=== PATIENT | male | born 2000 | race Two or more races ===

== ENCOUNTER 2025-03-20 11:45 | Emergency (ER) | payer OTHER ==
[~2025-03-20] VITALS: Ht 182.9 cm; Wt 100.2 kg
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
--- NOTE | 2025-03-20 13:00 | DVH ---
EXAM: XY R FEMUR XRAY HISTORY: trauma COMPARISON: None TECHNIQUE: AP and lateral views of the right femur were performed. FINDINGS/IMPRESSION: No acute fracture of the right femur. No significant degenerative changes of the right hip or knee.
--- NOTE | 2025-03-20 13:01 | DVH ---
CLINICAL INDICATION: trauma TECHNIQUE: 3 radiographic views of the right wrist were obtained. Comparison: None FINDINGS/IMPRESSION: There is no evidence of acute fracture or dislocation. The visualized joint space is well maintained. The alignment is anatomical. There is no radiopaque foreign body.
--- NOTE | 2025-03-20 13:02 | DVH ---
CLINICAL INDICATION: trauma TECHNIQUE: 3 radiographic views of the right hip were obtained. Comparison: None FINDINGS/IMPRESSION: There is no evidence of acute fracture or dislocation. The visualized joint space is well maintained. The alignment is anatomical. There is no radiopaque foreign body.
[2025-03-20] MEDS: HYDROcodone-ACET 5/325MG TAB PO ONE (13:58)
[2025-03-20] MEDS: KETOROLAC TROMETH 60MG/2ML VIAL IM ONE (13:59)
[2025-03-20] MEDS: TETANUS-DIPTH-ACEL PERTUSSIS 0.5ML SYR Tdap IM ONE (14:02)
[2025-03-20] MEDS ORDERED: IBUP-1455 PO (18:50)
[2025-03-20] MEDS ORDERED: HYDR-4902 PO (18:50)
[2025-03-20 19:22] VITALS: BP 132/66; PULSE 78; RESP 20; TEMP 98; O2SAT 97
== END 2025-03-20 19:25 | disposition home or self-care (01) ==
LOC: ER 11:45
DX: S63.501A Unspecified sprain of right wrist, initial encounter (principal); S80.11XA Contusion of right lower leg, initial encounter; Z85.830 Personal history of malignant neoplasm of bone; Z79.899 Other long term (current) drug therapy; Z98.890 Other specified postprocedural states; X58.XXXA Exposure to other specified factors, initial encounter; Y93.89 Activity, other specified; Y92.89 Other specified places as the place of occurrence of the external cause; Y99.8 Other external cause status
CPT/HCPCS: 73110; 73502; 73552; 90471; 90715; 96372; 99284; J1885